=== PATIENT | female | born 1950 | race Caucasian/White ===

== ENCOUNTER → 2021-09-17 | Outpatient (CLI) | payer OTHER | END | disposition home or self-care (01) | LOC: LAB SHORT 15:35 | DX: C54.1 Malignant neoplasm of endometrium (principal) | CPT/HCPCS: 88305 ==

== ENCOUNTER → 2021-09-17 | Outpatient (CLI) | payer OTHER ==
[2021-09-22 13:08] LABS: HPV 16 Negative (Negative); HPV 18 Negative (Negative); HPV OTHER HR TYPES Negative (Negative)
== END | disposition home or self-care (01) ==
LOC: LAB SHORT 13:46 → LAB 13:46
PROVIDERS: Obstetrics & Gynecology
DX: Z01.419 Encounter for gynecological examination (general) (routine) without abnormal findings (principal)
CPT/HCPCS: 87624; G0123

== ENCOUNTER → 2023-08-11 | Outpatient (CLI) | payer OTHER ==
[2023-08-11 10:12] LABS: BASOPHILS ABSOLUTE AUTO 0.07 K/mm3 (0.00-0.23); BASOPHILS PERCENT AUTO 1 % (0-2); EOSINOPHILS ABSOLUTE AUTO 0.44 K/mm3 (0.00-0.68); EOSINOPHILS PERCENT AUTO 7 % (0-6); Hematocrit 38.9 % (33.0-51.0); IMMATURE GRAN ABSOLUTE AUTO 0.01 K/mm3 (0.00-0.10); IMMATURE GRAN PERCENT AUTO 0 % (0-1); LYMPHOCYTES ABSOLUTE AUTO 1.31 K/mm3 (0.84-5.20); LYMPHOCYTES PERCENT AUTO 21 % (21-46); MONOCYTES ABSOLUTE AUTO 0.58 K/mm3 (0.16-1.47); MONOCYTES PERCENT AUTO 9 % (4-13); Mean Corpuscular HGB 29.7 pg (26.0-34.0); Mean Corpuscular HGB Conc 33.4 g/dL (31.5-36.5); Mean Corpuscular Volume 89 fL (80-100); Mean Platelet Volume 10.5 fL (9.1-12.4); NEUTROPHILS PERCENT AUTO 62 % (41-73); Platelet Count 225 K/mm3 (150-400); RDW Coefficient Variation 13.2 % (11.7-14.2); RDW Standard Deviation 43.4 fL (35.1-46.3); Red Blood Cell Count 4.37 M/mm3 (3.80-5.20); White Blood Cell Count 6.31 K/mm3 (4.00-11.30)
[2023-08-11 10:57] LABS: CHOL/HDL RATIO 2.8; Cholesterol 136 mg/dL (50-200); HDL Cholesterol 49 mg/dL (>39); LDL/HDL RATIO 1.3; Low Density Lipoprotein Chol 65 mg/dL (0-110); Thyroid Stimulating Hormone 0.712 uIU/mL (0.360-4.800); Triglycerides 112 mg/dL (30-160); Very Low Density Lipoprot Chol 22 mg/dL (6-32)
[2023-08-12 09:12] LABS: A/G RATIO 2.2 (1.2-2.2); BILIRUBIN, TOTAL 0.5 mg/dL (0.0-1.2); CALCIUM, SERUM 10.3 mg/dL (8.7-10.3); CREATININE, SERUM 0.75 mg/dL (0.57-1.00); PROTEIN, TOTAL, SERUM 6.3 g/dL (6.0-8.5)
== END | disposition home or self-care (01) ==
LOC: LAB SHORT 08:52 → LAB 08:52
PROVIDERS: Student in an Organized Health Care Education/Training Program
DX: E78.2 Mixed hyperlipidemia (principal); E03.9 Hypothyroidism, unspecified; F33.1 Major depressive disorder, recurrent, moderate; M54.40 Lumbago with sciatica, unspecified side
CPT/HCPCS: 80053; 80061; 84443; 85025

== ENCOUNTER 2023-10-29 12:54 | Inpatient (IN) | payer OTHER ==
[~2023-10-29] VITALS: Ht 160 cm; Wt 82.1 kg
[2023-10-29] MEDS ORDERED: Ketorolac Tromethamine 30mg Vial IM ONE (13:10)
[2023-10-29 14:09] LABS: BASOPHILS ABSOLUTE AUTO 0.05 K/mm3 (0.00-0.23); BASOPHILS PERCENT AUTO 0 % (0-2); EOSINOPHILS ABSOLUTE AUTO 0.05 K/mm3 (0.00-0.68); EOSINOPHILS PERCENT AUTO 0 % (0-6); Hematocrit 38.5 % (33.0-51.0); Hemoglobin 13.2 g/dL (11.5-16.0); IMMATURE GRAN ABSOLUTE AUTO 0.08 K/mm3 (0.00-0.10); IMMATURE GRAN PERCENT AUTO 1 % (0-1); LYMPHOCYTES ABSOLUTE AUTO 0.79 K/mm3 (0.84-5.20); LYMPHOCYTES PERCENT AUTO 7 % (21-46); MONOCYTES ABSOLUTE AUTO 0.68 K/mm3 (0.16-1.47); MONOCYTES PERCENT AUTO 6 % (4-13); Mean Corpuscular HGB 30.2 pg (26.0-34.0); Mean Corpuscular HGB Conc 34.3 g/dL (31.5-36.5); Mean Corpuscular Volume 88 fL (80-100); Mean Platelet Volume 9.5 fL (9.1-12.4); NEUTROPHILS ABSOLUTE AUTO 10.58 K/mm3 (1.96-9.15); NEUTROPHILS PERCENT AUTO 86 % (41-73); Platelet Count 196 K/mm3 (150-400); RDW Coefficient Variation 13.1 % (11.7-14.2); RDW Standard Deviation 42.6 fL (35.1-46.3); Red Blood Cell Count 4.37 M/mm3 (3.80-5.20); White Blood Cell Count 12.23 K/mm3 (4.00-11.30)
[2023-10-29 14:21] LABS: International Normalized Ratio 0.98; Prothrombin Time Results 10.5 Sec (9.7-11.5)
[2023-10-29 14:24] LABS: Bun/Creatinine Ratio 27.6 (12.0-20.0); Calcium, Blood 10.5 mg/dL (8.5-10.1); Creatinine, Blood 0.69 mg/dL (0.40-1.00); Potassium, Blood 3.5 mmol/L (3.5-5.5)
[2023-10-29] MEDS ORDERED: METOPROLOL SUCC25 MG PO (14:27)
[2023-10-29] MEDS ORDERED: ATORVASTATIN CA20 MG PO (14:27)
[2023-10-29] MEDS ORDERED: CHLO25B PO (14:27)
[2023-10-29] MEDS ORDERED: TIZANIDINE HCL213 PO (14:27)
[2023-10-29] MEDS ORDERED: CITALOPRAM HBR20 M9 PO (14:27)
[2023-10-29] MEDS ORDERED: Prinivil10 MG PO (14:28)
[2023-10-29] MEDS ORDERED: EUTHYROX150 MC1 PO (14:28)
[2023-10-29] MEDS ORDERED: FentaNYL Citrate 50 MCG/ML 2 ML Injection IV PRN (14:35)
[2023-10-29] MEDS ORDERED: Ondansetron HCl 2 MG / ML 2ML Vial IV PRN (14:35)
[2023-10-29] MEDS ORDERED: Acetaminophen 325 MG TABLET PO PRN (14:35)
[2023-10-29] MEDS ORDERED: HydrALAZINE HCl 20 MG / ML 1ML Vial IV PRN (14:40)
[2023-10-29 17:23] VITALS: BP 142/77
--- NOTE | 2023-10-29 18:18 | NUR ---
ARRIVED FROM ED VIA DAVID GILLESPIE, DENIES ANY NEED FOR PAIN MEDS AT THIS TIME, ORIENTED TO ROOM AND CALL SYSTEM, DR. SNEED IN TO SEE PT, PLAN FOR OR TOMORROW, NPO AFTER MN, PT VERBALIZES UNDERSTANDING.
--- NOTE | 2023-10-29 19:04 | NUR ---
TELE PLACED, SB AT 56 PER BUS CLEANER.
[2023-10-29 19:41] VITALS: BP 145/71
[2023-10-29] MEDS ORDERED: Morphine Sulfate 4 MG/1 ML Injection IV PRN (22:30)
[2023-10-30] VITALS (20 sets, daily range): BP systolic 117–157; BP diastolic 60–112
[2023-10-30 04:16] LABS: Hematocrit 37.3 % (33.0-51.0); Hemoglobin 12.7 g/dL (11.5-16.0); Mean Corpuscular Volume 88 fL (80-100); Mean Platelet Volume 9.5 fL (9.1-12.4); Platelet Count 196 K/mm3 (150-400); RDW Coefficient Variation 13.2 % (11.7-14.2); RDW Standard Deviation 42.6 fL (35.1-46.3); Red Blood Cell Count 4.24 M/mm3 (3.80-5.20); White Blood Cell Count 7.43 K/mm3 (4.00-11.30)
[2023-10-30 04:38] LABS: Bun/Creatinine Ratio 27.1 (12.0-20.0); Calcium, Blood 9.8 mg/dL (8.5-10.1); Creatinine, Blood 0.7 mg/dL (0.40-1.00); Potassium, Blood 3.6 mmol/L (3.5-5.5)
[2023-10-30] MEDS ORDERED: Levothyroxine Sodium 0.15 MG Tab PO SCH (06:00)
--- NOTE | 2023-10-30 06:00 | NUR ---
SHIFT SUMMARY PT IS A&O X4, ON RA, VSS, RESP UNLABORED, PAIN WNL, PT IS WAITING FOR SURGERY TODAY. DENIES N/T, CIRC WNL, REPORT GIVEN AT BEDSIDE, CALL LIGHT IN REACH
[2023-10-30] MEDS ORDERED: TiZANidine HCl 4 MG Tab PO SCH ×2 (09:00→21:35)
[2023-10-30] MEDS ORDERED: Citalopram Hydrobromide 20 MG Tab PO SCH (09:00)
[2023-10-30] MEDS ORDERED: Heparin Sodium,Porcine 5,000 UNIT/0.5 ML SDV SC SCH (09:00)
[2023-10-30] MEDS ORDERED: Atorvastatin 10 MG Tab PO SCH (09:00)
[2023-10-30] MEDS ORDERED: HydroCHLOROthiazide 25 mg Tab PO SCH (09:00)
[2023-10-30] MEDS ORDERED: Metoprolol Succinate 25 MG TABCR PO SCH (09:00)
[2023-10-30] MEDS ORDERED: Lisinopril 10 MG Tab PO SCH (09:00)
[2023-10-30] MEDS ORDERED: Midazolam HCl 1MG / ML 2ML Vial ONE (09:33)
[2023-10-30] MEDS ORDERED: propofoL 20 ML IV ONE (09:33)
[2023-10-30] MEDS ORDERED: FentaNYL Citrate 50 MCG/ML 2 ML Injection ONE (09:33)
[2023-10-30] MEDS ORDERED: CeFAZolin Sodium 2,000 MG in NS 100 ML IV SCH ×2 (09:45→19:00)
[2023-10-30] MEDS ORDERED: Tranexamic Acid 100 ML IV SCH (09:45)
[2023-10-30] MEDS ORDERED: CeFAZolin Sodium 2,000 MG VIAL ONE (10:23)
[2023-10-30] MEDS ORDERED: Bupivacaine 0.5% HCl 5 MG/ML 30MLVIAL ONE (11:12)
[2023-10-30] MEDS ORDERED: Lidocaine 1%-Epineph 1:100000 20 ML MDV ONE (11:13)
[2023-10-30] MEDS ORDERED: propofoL 40 ML IV ONE (11:26)
[2023-10-30] MEDS ORDERED: HYDROmorphone HCl/Pf 1MG SYR ONE (12:01)
[2023-10-30] MEDS ORDERED: Bupivacaine 0.5% Inj 10 ML Vial ONE (12:07)
[2023-10-30] MEDS ORDERED: Ketorolac Tromethamine 30mg Vial ONE (12:11)
--- NOTE | 2023-10-30 15:02 | NUR ---
RETURN FROM OR PT RETURNED FROM OR AT 1310 ON 2L OF O2. SHE WAS DROWSY UPON ARRIVAL BUT ANSWERED QUESTIONS APPROPRIATLY. SCDS IN PLACE. VSS. AQUACEL TO R HIP DRESSING IS C/D/I. DENIES PAIN OR DISCOMFORT AT THIS TIME. ABLE TO WIGGLE TOES, NO NUMBNESS OR TINGLING.
--- NOTE | 2023-10-30 18:32 | NUR ---
SHIFT SUMMARY PT IS AWAKE SITTING UP IN BED. VSS. SHE IS ON ROOM AIR. PHYSICAL THERAPY CAME IN AND WORKED WITH HER AFTER SURGERY AND SHE TOLERATED IT WELL. SHE IS WALKING TO THE BATHROOM WELL, STANDBY ASSIST. SHE IS TOLERATING A REGULAR DIET WITHOUT COMPLAINTS OF N/V. SHE IS VOIDING URINE POST-OP. SHE IS HAVING SOME SLIGHT CONFUSION AND HAZINESS POST-ANESTHESIA BUT IT IS INCREASINGLY IMPROVING.
[2023-10-30] MEDS ORDERED: Aspirin 81 MG TabEC PO SCH (21:00)
[2023-10-31] MEDS ORDERED: NS 250 ML IV PRN (00:55)
[2023-10-31 04:04] VITALS: BP 125/58
--- NOTE | 2023-10-31 04:29 | NUR ---
SHIFT SUMMARY POD1 R HIP PINNING. DRESSING IS C/D/I. VSS, TELE READS SR 59. PT AMBULATING TO BATHROOM TO VOID W/O DIFFICULTY. PT C/O CONSTIPATION, ENCOURAGE INCREASE ORAL FLUIDS AND AMBULATION. MEDICATED FOR PAIN T/O THE NIGHT WITH TIZANIDINE, PT HAS DENIED NEEDING OTHER PAIN MEDICATION. REPORTS SHE WILL WAIT FOR THE DRJakub TO COME AROUND. OFFERED TO CALL THE HOSPITALIST MULTIPLE TIMES, AND PT HAS DENIED NEEDING IT. TOLLERATING PO INTAKE W/O N/V. NO ACUTE EVENTS NOTED T/O THE NIGHT. PLAN TO HAVE PHYSICAL THERAPY EVAL AND D/C WHEN CLEARED
[2023-10-31 05:24] LABS: Hematocrit 35.4 % (33.0-51.0); Hemoglobin 11.9 g/dL (11.5-16.0); Mean Corpuscular HGB 29.8 pg (26.0-34.0); Mean Corpuscular HGB Conc 33.6 g/dL (31.5-36.5); Mean Corpuscular Volume 89 fL (80-100); Mean Platelet Volume 9.5 fL (9.1-12.4); Platelet Count 180 K/mm3 (150-400); RDW Coefficient Variation 13.2 % (11.7-14.2); RDW Standard Deviation 43.1 fL (35.1-46.3); White Blood Cell Count 10.45 K/mm3 (4.00-11.30)
[2023-10-31 07:13] VITALS: BP 125/60
[2023-10-31] MEDS ORDERED: OxyCODONE HCL 5 MG TAB PO PRN (07:35)
[2023-10-31] MEDS ORDERED: Magnesium Hydroxide Conc 10 ML UDC PO PRN (07:35)
[2023-10-31] MEDS ORDERED: Docusate Sodium 100 MG Cap PO SCH (09:00)
[2023-10-31] MEDS ORDERED: Enoxaparin 40 MG/0.4 ML SYR SC SCH (11:00)
[2023-10-31 14:50] VITALS: BP 132/65
--- NOTE | 2023-10-31 20:31 | NUR ---
SHIFT SUMMARY POD2 R FEMUR PERC PINNING, A/OX4, VSS, TOLERATING PO, UP TO CHAIR T/O MOST OF THE SHIFT, PAIN WELL MANAGED, WEIGHT BEARING STATUS CHANGED TO 50% BY ORTHO TODAY WHICH WAS THEN DISCUSSED WITH HER AND SHE IS ABLE TO FOLLOW THESE INSTRUCTIONS. NO ACUTE EVENTS THIS SHIFT, CALL LIGHT IN REACH.
--- NOTE | 2023-11-01 00:45 | NUR ---
ASSUMED CARE OF PT. PT RESTING IN BED, NO DISTRESS NOTED.
[2023-11-01 01:26] VITALS: BP 97/51
[2023-11-01 05:23] VITALS: BP 117/61
[2023-11-01 07:07] VITALS: BP 129/67
--- NOTE | 2023-11-01 08:17 | NUR ---
POD 2 S/P R HIP PINNING. PT VSS T/O NIGHT. DRESSING CDI. PAIN MGD PER EMAR W/REP RELIEF. PT DENIED N/T, CAP REFILL WNL. PT UP OOB W/FWW+1 ASSIST, DOES FAIR W/50% WBS. PLAN TO CONT TO MOBILIZE W/PT AND AWAIT DC PLANNING.
--- NOTE | 2023-11-01 11:10 | NUR ---
MORNING NOTE PATIENT IS A&OX4, STRONG PETAL PULSES FELT IN BOTH EXTREMITIES, CAP REFILL <3 SECONDS, CLEAR LUNG SOUNDS, VSS, NO EDEMA, SURGICAL SITE WNL, NO SIGNS OF HEMATOMA OR BLEEDING. PATIENT STATES PAIN IS CONTROLLED, EATING AND DRINKING, VOIDING, AND AMBULATING. NO COMPLAINTS OF DIFFICULTY BREATHING OR SOB. PATIENT STATES THAT SHE IS READY TO GO HOME.
[2023-11-01] MEDS ORDERED: Aspir 8181 MG PO (11:21)
[2023-11-01] MEDS ORDERED: DOCU100 PO (11:22)
[2023-11-01] MEDS ORDERED: OXYC5 PO (11:23)
[2023-11-01] MEDS ORDERED: DULCOLAX400 MG/5 M PO (11:23)
--- NOTE | 2023-11-01 11:57 | NUR ---
DISCHARGE NOTE IV REMOVED, WOUND DRESSINGS AND SCRIPT GIVEN. ESCORTED OUT VIA WC. DAUGHTER WAITING IN PRIVATE VEHICLE.
== END 2023-11-01 11:54 | disposition home health service (06) | DRG 482 ==
LOC: ER 12:54 → SURS 14:32
PROVIDERS: Orthopaedic Surgery Sports Medicine; Student in an Organized Health Care Education/Training Program; ADMIT Internal Medicine
PROC: 0SH934Z Insertion of Internal Fixation Device into Right Hip Joint, Percutaneous Approach (ICD-10-PCS; principal; 2023-10-30 10:30)
DX: S72.011A Unspecified intracapsular fracture of right femur, initial encounter for closed fracture (principal); W18.30XA Fall on same level, unspecified, initial encounter; F32.A Depression, unspecified; E03.9 Hypothyroidism, unspecified; E78.5 Hyperlipidemia, unspecified; I10 Essential (primary) hypertension; Z91.018 Allergy to other foods; Z91.048 Other nonmedicinal substance allergy status; Z90.710 Acquired absence of both cervix and uterus; Z79.899 Other long term (current) drug therapy; Z79.890 Hormone replacement therapy
CPT/HCPCS: 36415; 72170; 73502; 73552; 80048; 82306; 85025; 85027; 85610; 85730; 86850; 86900; 86901; 93005; 93010; 96372; 97110; 97116; 97161; 97530; 99285-25; A9270; C1713; C1769; J0690; J1170; J1650; J1885; J2250; J2270; J2405; J2704; J3010; J7050

== ENCOUNTER 2024-06-08 15:28 | Emergency (ER) | payer OTHER ==
[~2024-06-08] VITALS: Ht 160 cm; Wt 88.9 kg
[~2024-06-08 15:28] MED LIST: ATORVASTATIN CA20 MG PO; Aspir 8181 MG PO; CHLO25B PO; CITALOPRAM HBR20 M9 PO; DOCU100 PO; DULCOLAX400 MG/5 M PO; EUTHYROX150 MC1 PO; METOPROLOL SUCC25 MG PO; OXYC5 PO; Prinivil10 MG PO; TIZANIDINE HCL213 PO
[2024-06-08 15:33] VITALS: BP 148/78
[2024-06-08] MEDS ORDERED: Tetracaine HCl/Pf 0.5% Opth Soln 4 ml LEFTEYE ONE (15:35)
[2024-06-08] MEDS ORDERED: Fluorescein Sod 1MG Opth Strips LEFTEYE ONE (15:55)
== END 2024-06-08 17:05 | disposition home or self-care (01) ==
LOC: ER 15:28
DX: S05.92XA Unspecified injury of left eye and orbit, initial encounter (principal); Z79.82 Long term (current) use of aspirin; Z79.899 Other long term (current) drug therapy; Z91.018 Allergy to other foods; X58.XXXA Exposure to other specified factors, initial encounter
CPT/HCPCS: 99282; A9270